=== PATIENT | female | born 1975 | race Caucasian/White ===

== ENCOUNTER 2020-01-04 23:55 | Emergency (ER) | payer MEDICAID ==
--- NOTE | 2020-01-05 00:56 | EDM.PDOC ---
ED HPI GENERAL MEDICAL PROBLEM - General Chief Complaint: Upper Extremity Injury/Pain Stated Complaint: PAIN FROM CAST ON RIGHT HAND Time Seen by Provider: 01/05/20 00:49 Source of Information: Reports: Patient, RN Notes Reviewed History Limitations: Reports: No Limitations - History of Present Illness INITIAL COMMENTS - FREE TEXT/NARRATIVE: 44-year-old female presents emergency department today requesting her cast to be removed as she is in excruciating pain, her cast was placed yesterday, she is having no difficulty with finger movement she is only using Tylenol as needed for pain control Treatments CONCESSIONIST: Reports: Other (see below) Other Treatments CONCESSIONIST: elevation Right Hand Pain Score (Numeric/FACES): 7 - Related Data Allergies Allergy/AdvReac Type Severity Reaction Status Date / Time cefixime [From Suprax] Allergy Rash Verified 11/22/13 10:26 doxycycline Allergy Rash Verified 11/22/13 10:26 epinephrine Allergy Anxiety Verified 01/05/20 00:26 sertraline HCl [From Zoloft] Allergy Rash Verified 11/22/13 10:26 Sulfa (Sulfonamide Allergy Dizziness Verified 01/05/20 00:26 Antibiotics) Home Meds: Home Meds Acetaminophen [Tylenol] 650 mg PO ASDIRECTED PRN 01/05/20 [History] Cholecalciferol (Vitamin D3) [Vitamin D] 1 tab PO DAILY 01/05/20 [History] Fluticasone Propionate [Flonase] 1 spray MOISES ASDIRECTED PRN 01/05/20 [History] Ibuprofen 400 mg PO ASDIRECTED 01/05/20 [History] Loratadine [Claritin] 10 mg PO DAILY 01/05/20 [History] Past Medical History HEENT History: Reports: Sinusitis Respiratory History: Reports: Asthma 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 Musculoskeletal History: Reports: Fracture Psychiatric History: Reports: Anxiety - Infectious Disease History Infectious Disease History: Reports: Chicken Pox - Past Surgical History GI Surgical History: Reports: Colonoscopy Female Surgical History: Reports: Endometrial Ablation, Tubal Ligation Social & Family History - Tobacco Use Smoking Status *Q: Current Every Day Smoker Years of Tobacco use: 30 Packs/Tins Daily: 1 - Caffeine Use Caffeine Use: Reports: None - Recreational Drug Use Recreational Drug Use: No Review of Systems - Review of Systems Review Of Systems: See Below Constitutional: Reports: No Symptoms Musculoskeletal: Reports: Arm Pain ED EXAM, GENERAL - Physical Exam Exam: See Below Free Text/Narrative:: Examination of the right forearm I cannot appreciate any edema there is no erythema I am able to easily place a finger underneath the cast without difficulty or exacerbation of pain digits are exposed are easily movable capillary refill is less than 2 seconds General Appearance: Alert, WD/WN, No Apparent Distress Course - Vital Signs Last Recorded V/S: Last Vital Signs Temp 96.9 F 01/05/20 00:29 Pulse 111 H 01/05/20 00:29 Resp 14 01/05/20 00:29 BP 121/77 01/05/20 00:29 Pulse Ox 98 01/05/20 00:29 Departure - Departure Time of Disposition: 00:55 Disposition: Home, Self-Care 01 Condition: Fair Clinical Impression: Cast discomfort - Discharge Information Referrals: July Clark CNM [Primary Care Provider] - Sepsis Event Note - Evaluation Sepsis Screening Result: No Definite Risk - Focused Exam Vital Signs: Vital Signs Temp Pulse Resp BP Pulse Ox 01/05/20 00:29 96.9 F 111 H 14 121/77 98 Date Exam was Performed: 01/05/20 Time Exam was Performed: 00:52 - Assessment/Plan Plan: Assessment Acuity = acute Site and laterality = right arm cast pain Etiology = unknown Manifestations = none Location of injury = Home Lab values = none Plan I did offer pain medication which she declined I also declined removing her cast I felt it was important that she consult with her orthopedic surgeon who placed the cast before I removed it. She became upset by my response and left abruptly This note was dictated using [email or web address] voice recognition software please call with any questions on syntax or grammar.
== END 2020-01-05 00:52 | disposition left against medical advice (07) ==
LOC: JP.ED 23:55
CPT/HCPCS: 99283

== ENCOUNTER 2020-12-30 20:48 | Emergency (ER) | payer MEDICAID ==
[2020-12-30 21:21] VITALS: BP 128/88; PULSE 120
--- NOTE | 2020-12-30 22:11 | EDM.PDOC ---
ED HPI GENERAL MEDICAL PROBLEM - General Chief Complaint: Gastrointestinal Problem Stated Complaint: PAIN IN BACK, PRESURRE UNDER BREAST Time Seen by Provider: 12/30/20 21:31 Source of Information: Reports: Patient History Limitations: Reports: No Limitations - History of Present Illness INITIAL COMMENTS - FREE TEXT/NARRATIVE: Peggy is a 45-year-old female presenting to the ED for evaluation of epigastric pain worsens with inspiration. Patient states that the pain started after eating to [employer] from [employer] with hot sauce tonight. She does have a history significant for gastroesophageal reflux disease and was recently ill with a gastroenteritis causing nausea, vomiting, and diarrhea. She reports that in the past she has been put on omeprazole but had an allergic reaction to that causing throat tightening. She normally just treats her reflux with Tums which has not been helping lately. She denies any fever, chills, cough but does have pain with inspiration. She also is complaining of pain in the epigastrium radiating through to the back. This in turn has triggered her anxiety which is quite significant. Upon arrival into the room to evaluate the patient, the patient has had improvement in her anxiety and is now breathing at a normal rate. mid back Pain Score (Numeric/FACES): 8 - Related Data Allergies Allergy/AdvReac Type Severity Reaction Status Date / Time cefixime [From Suprax] Allergy Rash Verified 11/22/13 10:26 doxycycline Allergy Rash Verified 11/22/13 10:26 epinephrine Allergy Anxiety Verified 01/05/20 00:26 omeprazole Allergy Airway Verified 12/30/20 21:15 Tightness sertraline HCl [From Zoloft] Allergy Rash Verified 11/22/13 10:26 Sulfa (Sulfonamide Allergy Dizziness Verified 01/05/20 00:26 Antibiotics) Home Meds: Home Meds Acetaminophen [Tylenol] 650 mg PO ASDIRECTED PRN 01/05/20 [History] Cholecalciferol (Vitamin D3) [Vitamin D] 1 tab PO DAILY 01/05/20 [History] Fluticasone Propionate [Flonase] 1 spray MOISES ASDIRECTED PRN 01/05/20 [History] Ibuprofen 400 mg PO ASDIRECTED 01/05/20 [History] Loratadine [Claritin] 10 mg PO DAILY 01/05/20 [History] Vitamin B Complex 1 cap PO DAILY 12/30/20 [History] Past Medical History HEENT History: Reports: Sinusitis Respiratory History: Reports: Asthma Gastrointestinal History: Reports: GERD 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 Musculoskeletal History: Reports: Fracture Psychiatric History: Reports: Anxiety - Infectious Disease History Infectious Disease History: Reports: Chicken Pox - Past Surgical History GI Surgical History: Reports: Colonoscopy Female Surgical History: Reports: Endometrial Ablation, Tubal Ligation Social & Family History - Tobacco Use Tobacco Use Status *Q: Current Every Day Tobacco User Years of Tobacco use: 31 Packs/Tins Daily: 1 - Caffeine Use Caffeine Use: Reports: Coffee, Soda - Recreational Drug Use Recreational Drug Use: No ED ROS GENERAL - Review of Systems Review Of Systems: See Below Constitutional: Reports: No Symptoms HEENT: Reports: No Symptoms Respiratory: Reports: Other (Pain in epigastric region and back with deep inspiration) Cardiovascular: Reports: No Symptoms Endocrine: Reports: No Symptoms GI/Abdominal: Reports: Abdominal Pain (Epigastric pain). Denies: Constipation, Diarrhea, Decreased Appetite, Difficulty Swallowing, Nausea, Vomiting : Reports: No Symptoms Musculoskeletal: Reports: No Symptoms Skin: Reports: No Symptoms Neurological: Reports: No Symptoms Psychiatric: Reports: No Symptoms Hematologic/Lymphatic: Reports: No Symptoms Immunologic: Reports: No Symptoms ED EXAM, GI/ABD - Physical Exam Exam: See Below Exam Limited By: No Limitations General Appearance: Alert, No Apparent Distress, Anxious Eyes: Bilateral: EOMI Throat/Mouth: Normal Inspection, Normal Oropharynx, Normal Voice, No Airway Compromise Head: Atraumatic, Normocephalic Respiratory/Chest: No Respiratory Distress, Lungs Clear, Normal Breath Sounds, Chest Non-Tender Cardiovascular: Normal Peripheral Pulses, Regular Rate, Rhythm, No Murmur GI/Abdominal Exam: Soft, Tender (Mild epigastric tenderness with palpation), Abnormal Bowel Sounds (Mildly increased bowel sounds). No: Guarding, Rigid, Rebound Back Exam: Normal Inspection, Full Range of Motion Extremities: Normal Inspection, Normal Range of Motion Neurological: Alert, Oriented, Normal Cognition, No Motor/Sensory Deficits Psychiatric: Normal Affect, Anxious Skin Exam: Warm, Dry Lymphatic: No Adenopathy Course - Vital Signs Last Recorded V/S: Last Vital Signs Temp 36.6 C 12/30/20 21:20 Pulse 120 H 12/30/20 21:20 Resp 16 12/30/20 21:20 BP 128/88 12/30/20 21:20 Pulse Ox 97 12/30/20 21:20 - Orders/Labs/Meds Orders: Active Orders 24 hr Category Date Time Status Abdomen Pelvis w Cont [CT] Stat Exams 12/30/20 23:03 Ordered Chest 2V [CR] Stat Exams 12/30/20 22:05 Taken Sodium Chloride 0.9% [Saline Flush] Med 12/30/20 23:03 Active 10 ml FLUSH ASDIRECTED PRN Saline Lock Insert [OM.PC] Routine Oth 12/30/20 23:03 Ordered Medication Orders Sodium Chloride (Saline Flush) 10 ml FLUSH ASDIRECTED PRN PRN Reason: Keep Vein Open Labs: Laboratory Tests 12/30/20 12/30/20 Range/Units 22:05 22:10 WBC 21.8 H (4.5-11.0) K/uL RBC 5.29 (3.30-5.50) M/uL Hgb 16.7 H (12.0-15.0) g/dL Hct 48.6 H (36.0-48.0) % MCV 92 (80-98) fL MCH 32 H (27-31) pg MCHC 34 (32-36) % Plt Count 277 (150-400) K/uL Neut % (Auto) 81 H (36-66) % Lymph % (Auto) 12 L (24-44) % [place] % (Auto) 6 (2-6) % Eos % (Auto) 0 L (2-4) % Baso % (Auto) 0 (0-1) % Sodium 143 (140-148) mmol/L Potassium 4.1 (3.6-5.2) mmol/L Chloride 106 (100-108) mmol/L Carbon Dioxide 24 (21-32) mmol/L Anion Gap 12.8 (5.0-14.0) mmol/L BUN 17 (7-18) mg/dL Creatinine 0.8 (0.6-1.0) mg/dL Est Cr Clr Drug Dosing 84.88 mL/min Estimated GFR (MDRD) > 60 (>60) Glucose 111 H (74-106) mg/dL Calcium 9.1 (8.5-10.1) mg/dL Total Bilirubin 0.4 (0.2-1.0) mg/dL AST 13 L (15-37) U/L ALT 19 (12-78) U/L Alkaline Phosphatase 64 (46-116) U/L Total Protein 7.2 (6.4-8.2) g/dL Albumin 3.8 (3.4-5.0) g/dL Globulin 3.4 (2.3-3.5) g/dL Albumin/Globulin Ratio 1.1 L (1.2-2.2) Lipase 145 (73-393) U/L Meds: Medications Generic Name Dose Route Start Last Admin Trade Name Freq PRN Reason Stop Dose Admin Sodium Chloride 10 ml 12/30/20 23:03 Saline Flush FLUSH ASDIRECTED PRN Keep Vein Open - Radiology Interpretation Free Text/Narrative:: 2 view chest x-ray shows a sizable hiatal hernia. There is no evidence for acute infiltrates. Normal cardiac silhouette. - Re-Assessments/Exams Free Text/Narrative Re-Assessment/Exam: 12/30/20 22:48 I reviewed the patient's labs which show a significant leukocytosis of 21.8 with a left shift. 12/30/20 23:17 the remainder of the labs look unremarkable. I offered the patient a CT of the abdomen and pelvis with contrast to evaluate the hiatal hernia and significant leukocytosis. She declines at this time as she is feeling back to her baseline. She will follow up with her primary care provider to discuss management of the hiatal hernia. I did recommend the patient take Pepcid 20 mg daily and avoid spicy foods, alcohol, and caffeine which could exacerbate her GERD with esophagitis. Indications return to the ED were discussed. All questions were answered and patient was suitable for discharge in satisfactory condition. Departure - Departure Time of Disposition: 23:15 Disposition: Home, Self-Care 01 Condition: Good Clinical Impression: Hiatal hernia, Anxiety GERD with esophagitis Qualifiers: Esophagitis bleeding: without hemorrhage Qualified Code(s): K21.00 - Gastro- esophageal reflux disease with esophagitis, without bleeding - Discharge Information *PRESCRIPTION DRUG MONITORING PROGRAM REVIEWED*: Not Applicable *COPY OF PRESCRIPTION DRUG MONITORING REPORT IN PATIENT KATYA: Not Applicable Instructions: Food Choices for Gastroesophageal Reflux Disease, Adult, [id number], Hernia, Adult, [id number], Gastroesophageal Reflux Disease, Adult, [id number] Referrals: July Clark CNM [Primary Care Provider] - Forms: ED Department Discharge Care Plan Goals: I would avoid spicy foods, caffeine, and alcohol. I would recommend taking Pepcid 1 tablet daily. Follow-up with your doctor. Return to the ED should you develop fever, chills, worsening abdominal pain, nausea or vomiting. Sepsis Event Note (ED) - Evaluation Sepsis Screening Result: No Definite Risk - Focused Exam Vital Signs: Vital Signs Temp Pulse Resp BP Pulse Ox 12/30/20 21:20 36.6 C 120 H 16 128/88 97 - My Orders Last 24 Hours: My Active Orders 12/30/20 22:05 Chest 2V [CR] Stat 12/30/20 23:03 Abdomen Pelvis w Cont [CT] Stat Sodium Chloride 0.9% [Saline Flush] 10 ml FLUSH ASDIRECTED PRN Saline Lock Insert [OM.PC] Routine - Assessment/Plan Last 24 Hours: My Active Orders 12/30/20 22:05 Chest 2V [CR] Stat 12/30/20 23:03 Abdomen Pelvis w Cont [CT] Stat Sodium Chloride 0.9% [Saline Flush] 10 ml FLUSH ASDIRECTED PRN Saline Lock Insert [OM.PC] Routine
[2020-12-30] MEDS ORDERED: Sodium Chloride 0.9% 10 ML Syringe FLUSH PRN (23:03)
--- NOTE | 2020-12-31 09:19 | CR ---
CHEST: 2 view CLINICAL HISTORY:Epigastric pain COMPARISON:None FINDINGS: The heart size, pulmonary vascularity and hilar structures are normal. No infiltrate effusion or pneumothorax is seen. There is a prominent cardiac fat pad on the right. IMPRESSION: No acute cardiopulmonary process.
== END 2020-12-30 23:25 | disposition home or self-care (01) ==
LOC: JP.ED 20:48
DX: K21.00 Gastro-esophageal reflux disease with esophagitis, without bleeding (principal); F41.9 Anxiety disorder, unspecified; K44.9 Diaphragmatic hernia without obstruction or gangrene; J45.909 Unspecified asthma, uncomplicated; Z72.0 Tobacco use; Z88.1 Allergy status to other antibiotic agents; Z88.8 Allergy status to other drugs, medicaments and biological substances; Z88.2 Allergy status to sulfonamides
CPT/HCPCS: 36415; 71046; 71046-26; 80053; 83690; 85025; 99283; 99284-25

== ENCOUNTER 2021-01-24 23:27 | Emergency (ER) | payer MEDICAID ==
[2021-01-24 23:40] VITALS: BP 142/86; PULSE 74
[2021-01-24] MEDS ORDERED: Alum Hydrox/Mag Hydrox/Simeth 15 ML, Lidocaine 2% 15 ML PO ONE ×2 (23:55)
[2021-01-25] MEDS ORDERED: Ondansetron 4 MG Tab.DIS PO ONE (00:06)
[2021-01-25] MEDS ORDERED: LORazepam 0.5 MG Tab PO ONE (00:08)
--- NOTE | 2021-01-25 00:08 | EDM.PDOC ---
ED HPI GENERAL MEDICAL PROBLEM - General Chief Complaint: Abdominal Pain Stated Complaint: STOMACH PAIN Time Seen by Provider: 01/24/21 23:48 Source of Information: Reports: Patient, Old Records History Limitations: Reports: No Limitations - History of Present Illness INITIAL COMMENTS - FREE TEXT/NARRATIVE: Peggy is a 45-year-old female presenting to the ED for evaluation of severe epigastric discomfort. Patient is known to me from a previous visit on 12/30/2020 when she presented with a similar fashion. Like previously where she had eaten [employer], tonight she had also eaten [employer] although tonight she denies eating any spicy or "hot food" to set off her symptoms. Previous note reports that she has a hiatal hernia, however, the patient was told by her primary care provider that she does not. Review of her chest x-ray certainly shows a hiatal hernia and in the absence of an endoscopy to show otherwise, she may have a sliding variation. She also has a history for GERD with esophagitis. Patient has been taking Tums without relief. She also took Pepcid but is allergic to omeprazole. In addition to the epigastric discomfort, she also has generalized abdominal pain due to constipation. Her last bowel movement was 2 days ago. Prior to that she was having diarrhea and took Imodium which resolved her diarrhea but left her with the alternative. She denies any fever, chills, nausea or vomiting, hematemesis or hematochezia, melena or dark tarry stools. She reports that she still has her gallbladder. Patient reports that she came in because she is miserable with the current pain and was not able to get it under control. Upper Abdominal Pain Score (Numeric/FACES): 10 - Related Data Allergies Allergy/AdvReac Type Severity Reaction Status Date / Time cefixime [From Suprax] Allergy Rash Verified 01/24/21 23:36 doxycycline Allergy Rash Verified 01/24/21 23:36 epinephrine Allergy Anxiety Verified 01/24/21 23:36 omeprazole Allergy Airway Verified 01/24/21 23:36 Tightness sertraline HCl [From Zoloft] Allergy Rash Verified 01/24/21 23:36 Sulfa (Sulfonamide Allergy Dizziness Verified 01/24/21 23:36 Antibiotics) Home Meds: Home Meds Acetaminophen [Tylenol] 650 mg PO ASDIRECTED PRN 01/05/20 [History] Cholecalciferol (Vitamin D3) [Vitamin D] 1 tab PO DAILY 01/05/20 [History] Fluticasone Propionate [Flonase] 1 spray MOISES ASDIRECTED PRN 01/05/20 [History] Ibuprofen 400 mg PO ASDIRECTED 01/05/20 [History] Loratadine [Claritin] 10 mg PO DAILY 01/05/20 [History] Famotidine [Pepcid] 10 mg PO DAILY 01/24/21 [History] Past Medical History HEENT History: Reports: Impaired Vision, Sinusitis Respiratory History: Reports: Asthma Gastrointestinal History: Reports: GERD, Hiatal Hernia, Other (See Below) Other Gastrointestinal History: esphagitis 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, Musculoskeletal History: Reports: Arthritis, Fracture Neurological History: Reports: Migraines Psychiatric History: Reports: Anxiety, Depression - Infectious Disease History Infectious Disease History: Reports: Chicken Pox - Past Surgical History Female Surgical History: Reports: Endometrial Ablation, Tubal Ligation Social & Family History - Tobacco Use Tobacco Use Status *Q: Current Every Day Tobacco User Years of Tobacco use: 30 Packs/Tins Daily: 1 - Caffeine Use Caffeine Use: Reports: Soda - Recreational Drug Use Recreational Drug Use: No ED ROS GENERAL - Review of Systems Review Of Systems: See Below Constitutional: Reports: No Symptoms HEENT: Reports: No Symptoms Respiratory: Reports: No Symptoms Cardiovascular: Reports: No Symptoms Endocrine: Reports: No Symptoms GI/Abdominal: Reports: Abdominal Pain (Epigastric), Constipation. Denies: Nausea, Vomiting : Reports: No Symptoms Musculoskeletal: Reports: No Symptoms Skin: Reports: No Symptoms Neurological: Reports: No Symptoms Psychiatric: Reports: No Symptoms Hematologic/Lymphatic: Reports: No Symptoms Immunologic: Reports: No Symptoms ED EXAM, GI/ABD - Physical Exam Exam: See Below Exam Limited By: No Limitations General Appearance: Alert, Anxious, Mild Distress Eyes: Bilateral: EOMI Throat/Mouth: Normal Inspection, Normal Lips, Normal Oropharynx, Normal Voice, No Airway Compromise Head: Atraumatic, Normocephalic Neck: Normal Inspection, Supple Respiratory/Chest: No Respiratory Distress, Lungs Clear, Normal Breath Sounds Cardiovascular: Normal Peripheral Pulses, Regular Rate, Rhythm, No Murmur GI/Abdominal Exam: Normal Bowel Sounds, Soft, No Organomegaly, Tender (Mild epigastric tenderness). No: Guarding (Negative Nowak sign), Rigid, Rebound Back Exam: Normal Inspection, Full Range of Motion Extremities: Normal Inspection, Normal Range of Motion Neurological: Alert, Oriented, Normal Cognition, No Motor/Sensory Deficits Psychiatric: Normal Affect, Anxious Skin Exam: Warm, Dry, Intact, Normal Color Lymphatic: No Adenopathy Course - Vital Signs Last Recorded V/S: Last Vital Signs Temp 35.8 C L 01/24/21 23:40 Pulse 74 01/24/21 23:40 Resp 20 01/24/21 23:40 BP 142/86 H 01/24/21 23:40 Pulse Ox 98 01/24/21 23:40 - Orders/Labs/Meds Orders: Active Orders 24 hr Category Date Time Status COMPREHENSIVE METABOLIC PN,CMP [CHEM] Stat Lab 01/24/21 00:00 Received LIPASE [CHEM] Stat Lab 01/24/21 00:00 Received Labs: Laboratory Tests 01/24/21 Range/Units 00:00 WBC 15.0 H (4.5-11.0) K/uL RBC 4.93 (3.30-5.50) M/uL Hgb 15.8 H (12.0-15.0) g/dL Hct 45.5 (36.0-48.0) % MCV 92 (80-98) fL MCH 32 H (27-31) pg MCHC 35 (32-36) % Plt Count 282 (150-400) K/uL Neut % (Auto) 72 H (36-66) % Lymph % (Auto) 20 L (24-44) % [place] % (Auto) 7 H (2-6) % Eos % (Auto) 1 L (2-4) % Baso % (Auto) 0 (0-1) % Meds: Medications Discontinued Medications Generic Name Dose Route Start Last Admin Trade Name Freq PRN Reason Stop Dose Admin Al Hydroxide/Mg Hydroxide 15 0 ml 01/24/21 23:55 01/24/21 23:59 ml/ Lidocaine HCl 15 ml PO 01/24/21 23:56 15 ml ONETIME ONE Administration Lorazepam 0.5 mg 01/25/21 00:08 01/25/21 00:12 Ativan PO 01/25/21 00:09 Not Given ONETIME ONE Ondansetron HCl 4 mg 01/25/21 00:06 01/25/21 00:12 Zofran Odt PO 01/25/21 00:07 Not Given ONETIME ONE - Re-Assessments/Exams Free Text/Narrative Re-Assessment/Exam: 01/25/21 00:36 patient's labs were reviewed and still show a significant leukocytosis although it is improved from 1131 2020 when it was 21.6. She is down to 15.0. The comprehensive metabolic panel and lipase are unremarkable. Patient was given a GI cocktail with marked improvement in her symptoms. At this time she is suitable for discharge home. Departure - Departure Time of Disposition: 00:45 Disposition: Home, Self-Care 01 Condition: Good Clinical Impression: Hiatal hernia GERD with esophagitis Qualifiers: Esophagitis bleeding: without hemorrhage Qualified Code(s): K21.00 - Gastro- esophageal reflux disease with esophagitis, without bleeding - Discharge Information *PRESCRIPTION DRUG MONITORING PROGRAM REVIEWED*: Not Applicable *COPY OF PRESCRIPTION DRUG MONITORING REPORT IN PATIENT KATYA: Not Applicable Instructions: Food Choices for Gastroesophageal Reflux Disease, Adult, Gastroes ophageal Reflux Disease, Adult, [id number] Referrals: July Clark CNM [Primary Care Provider] - Forms: ED Department Discharge Care Plan Goals: Your labs looked good today, although you still have an elevated white blood cell count which seems to be improved from when I saw you last month. Continue to advance your healthy eating diet. I would recommend avoiding Leyva's in the future as this seems to exacerbate your symptoms. Continue with the Pepcid and Maalox as needed. If the reflux and epigastric pain persist you may want to consider undergoing an endoscopy for evaluation of esophagitis. Return to the ED should you have any significant increase in symptoms again. Sepsis Event Note (ED) - Evaluation Sepsis Screening Result: No Definite Risk - Focused Exam Vital Signs: Vital Signs Temp Pulse Resp BP Pulse Ox 01/24/21 23:40 35.8 C L 74 20 142/86 H 98 01/24/21 23:39 35.8 C L 74 20 142/86 H 98 - Problem List & Annotations (1) GERD with esophagitis SNOMED Code(s): 540694988 Code(s): K21.00 - GASTRO-ESOPHAGEAL REFLUX DIS WITH ESOPHAGITIS, WITHOUT BLEED Status: Acute Priority: Medium Current Visit: Yes Qualifiers: Esophagitis bleeding: without hemorrhage Qualified Code(s): K21.00 - Gastro-esophageal reflux disease with esophagitis, without bleeding (2) Hiatal hernia SNOMED Code(s): 86179275 Code(s): K44.9 - DIAPHRAGMATIC HERNIA WITHOUT OBSTRUCTION OR GANGRENE Status: Acute Priority: Medium Current Visit: Yes - Problem List Review Problem List Initiated/Reviewed/Updated: Yes - My Orders Last 24 Hours: My Active Orders 01/24/21 00:00 COMPREHENSIVE METABOLIC PN,CMP [CHEM] Stat LIPASE [CHEM] Stat - Assessment/Plan Last 24 Hours: My Active Orders 01/24/21 00:00 COMPREHENSIVE METABOLIC PN,CMP [CHEM] Stat LIPASE [CHEM] Stat
== END 2021-01-25 00:54 | disposition home or self-care (01) ==
LOC: JP.ED 23:27
DX: K21.00 Gastro-esophageal reflux disease with esophagitis, without bleeding (principal); K44.9 Diaphragmatic hernia without obstruction or gangrene; J45.909 Unspecified asthma, uncomplicated; K21.9 Gastro-esophageal reflux disease without esophagitis; Z88.1 Allergy status to other antibiotic agents; Z88.8 Allergy status to other drugs, medicaments and biological substances; Z88.5 Allergy status to narcotic agent; Z88.2 Allergy status to sulfonamides; Z79.899 Other long term (current) drug therapy; Z72.0 Tobacco use
CPT/HCPCS: 36415; 80053; 83690; 85025; 99284; A9270; 99283

== ENCOUNTER 2021-02-11 05:57 | Day surgery (SDC) | payer MEDICAID ==
[2021-02-11] MEDS ORDERED: Bupivacaine 0.5% 50 ML MDV ONE (06:38)
[2021-02-11] MEDS ORDERED: Lidocaine 1% with EPINEPHrine 1:100,000 50 ML MDV ONE (06:38)
[2021-02-11] MEDS: Sodium Chloride 0.9% 1,000 ML IV SCH ×2 (06:48→11:15)
[2021-02-11] MEDS ORDERED: Albuterol/Ipratropium 3.0-0.5 MG/3 ML Neb Soln NEB ONE (06:49)
[2021-02-11] MEDS ORDERED: metroNIDAZOLE/Normal Saline 500 MG in Premix Bag 1 BAG IV ONE (07:00)
[2021-02-11] MEDS ORDERED: ceFAZolin 2 GM in Sodium Chloride 0.9% 100 ML IV ONE (07:00)
[2021-02-11] MEDS ORDERED: ceFAZolin 2 GM in Premix Bag 1 BAG IV ONE (07:20)
[2021-02-11] MEDS ORDERED: Dexamethasone 4 MG/ML SDV ONE (07:25)
[2021-02-11] MEDS ORDERED: Neostigmine Methylsulfate 1 MG/ML 5 ML Syringe ONE (07:25)
[2021-02-11] MEDS ORDERED: fentaNYL 250 MCG/5 ML SDV ONE (07:25)
[2021-02-11] MEDS ORDERED: Propofol 200 MG/20 ML SDV ONE (07:25)
[2021-02-11] MEDS ORDERED: Glycopyrrolate 0.2 MG/ML 5 ML MDV ONE (07:25)
[2021-02-11] MEDS ORDERED: Rocuronium 50 MG/5 ML Vial ONE (07:25)
[2021-02-11] MEDS ORDERED: Ondansetron 4 MG/2 ML SDV ONE (07:25)
[2021-02-11] MEDS ORDERED: fentaNYL 100 MCG/2 ML SDV ONE ×2 (08:44→08:53)
[2021-02-11] MEDS ORDERED: Acetaminophen/HYDROcodone 325-5 MG Tab PO PRN (09:04)
[2021-02-11] MEDS ORDERED: Docusate Sodium 100 MG Cap PO PRN (09:04)
[2021-02-11] MEDS ORDERED: hydrOXYzine HCL 100 MG/2 ML SDV IM PRN (09:04)
[2021-02-11] MEDS ORDERED: Benzocaine/Cetylpyridinium/Menthol Lozenge MUCMEM PRN (09:04)
[2021-02-11] MEDS ORDERED: Zolpidem 5 MG Tab PO PRN (09:04)
[2021-02-11] MEDS ORDERED: Acetaminophen 325 MG Tab PO PRN (10:05)
[2021-02-11] MEDS ORDERED: Ibuprofen 600 MG Tab PO PRN (10:08)
--- NOTE | 2021-02-11 10:16 | OR ---
DATE OF PROCEDURE: 02/11/2021 SURGEON: Peter Torres MD PROCEDURE: Laparoscopic cholecystectomy. PREOPERATIVE DIAGNOSES: Cholelithiasis, cholecystitis. POSTOPERATIVE DIAGNOSES: Cholelithiasis, cholecystitis. COMPLICATIONS: None. 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 RISKS: Risks, benefits, alternatives, and limitations including, but not limited to infection, bleeding, false positives, false negatives, cystic duct leaks, common bile duct injuries, possibility of open surgery, hematoma, biloma, and other risks not listed here were explained to the patient who wished to proceed. PROCEDURE IN DETAIL: The patient was placed in supine position. A supraumbilical curvilinear incision was made. A Veress needle was used to enter the abdomen without abnormality and a drop test was performed without abnormality. The abdomen was subsequently insufflated. This was followed by an Optiview trocar. No evidence of enterotomy or injury was noted during entry. An additional 12 and 2 additional 5 mm ports were entered under direct visualization. The gallbladder was retracted cephalad. The infundibulum was retracted inferolaterally. Using blunt dissection, a "clear view" of the gallbladder was obtained with a single pulsatile structure entering the gallbladder and a single non-pulsatile structure entering the gallbladder. These were subsequently clipped x3 and transected. The remaining 1/3rd of the gallbladder was removed off the gallbladder bed without difficulty. This was then removed through the superior port with a bag system also without difficulty. The gallbladder fossa was inspected for bleeding which was minimal, controlled by electrocautery. The abdomen was irrigated with greater than 1 L of irrigation. This liquid was removed. The entry point was inspected for abnormality. The air was removed. The wounds were closed with 3-0 Vicryl and 4-0 Vicryl. The patient tolerated the procedure well. Peter Torres MD /[id number]
--- NOTE | 2021-02-11 10:19 | OR ---
DATE OF PROCEDURE: 02/11/2021 SURGEON: Peter Torres MD PROCEDURES: 1. Transversus abdominis plane block bilaterally. 2. Rectus sheath block bilaterally. COMPLICATION: None. ENDOSCOPE TECHNICIAN: None. RISKS: Risks, benefits, alternatives, and limitations including, but not limited to infection, bleeding, injury to abdominal structures were explained to the patient and she wished to proceed. PROCEDURE IN DETAIL: The patient was placed in supine position. The right transversus plane was identified first. 20% of the solution was then injected in this location. This was then performed on the left side in a same manner, same fashion, same technique, also using the 13 mm megahertz ultrasound guidance probe. This was then repeated for the left and right rectus sheaths without difficulty. The patient tolerated the procedure well. Peter Torres MD /[id number]
[2021-02-11 12:03] VITALS: BP 105/61; PULSE 78
== END 2021-02-11 13:55 | disposition home or self-care (01) ==
LOC: JP.SDS 05:57 → JP.MS 09:55 → JP.SDS 13:55
PROVIDERS: ATTEND Surgery
DX: K80.12 Calculus of gallbladder with acute and chronic cholecystitis without obstruction (principal); J45.909 Unspecified asthma, uncomplicated; E66.3 Overweight; Z68.30 Body mass index [BMI] 30.0-30.9, adult; F17.210 Nicotine dependence, cigarettes, uncomplicated; Z98.890 Other specified postprocedural states
CPT/HCPCS: 47562; 81025; 94640; A9270; J0171; J1100; J1790; J2405; J2704; J2710; J2795; J3010; J3490; J7030; J7620-GY

== ENCOUNTER 2023-01-24 08:19 | Emergency (ER) | payer MEDICAID ==
[2023-01-24 08:49] VITALS: BP 123/85; PULSE 112
== END 2023-01-24 09:20 | disposition home or self-care (01) ==
LOC: JP.ED 08:19
DX: K04.7 Periapical abscess without sinus (principal); J45.909 Unspecified asthma, uncomplicated; Z88.1 Allergy status to other antibiotic agents; Z88.8 Allergy status to other drugs, medicaments and biological substances; Z88.2 Allergy status to sulfonamides; Z88.4 Allergy status to anesthetic agent
CPT/HCPCS: 99282